=== PATIENT | male | born 1935 | race African-American/Black ===

== ENCOUNTER 2017-10-24 00:42 | Inpatient (IN) | payer MEDICARE, BC ==
[2017-10-24 02:35] LABS: ADD MAN DIFF? NO
[2017-10-24 02:37] LABS: BASOPHILS % 0.1 % (0.0-2.0); EOSINOPHILS % 0.5 % (0.0-7.0); HEMATOCRIT 34.3 % (42.0-52.0); HEMOGLOBIN 11.5 g/dl (14.0-18.0); LYMPHOCYTES # 1.7 10^3/ul (0.8-2.9); LYMPHOCYTES % 18.8 % (15.0-51.0); MEAN CORPUSCULAR HEMOGLOBIN 24.1 pg (29.0-33.0); MEAN CORPUSCULAR HGB CONC 33.5 g/dl (32.0-37.0); MEAN CORPUSCULAR VOLUME 71.8 fl (82.0-101.0); MEAN PLATELET VOLUME 10.3 fl (7.4-10.4); MONOCYTE # 0.8 10^3/ul (0.3-0.9); NEUTROPHIL # 6.3 10^3/ul (1.6-7.5); NEUTROPHILS % 71.3 % (39.0-77.0); PLATELET COUNT 239 10^3/UL (140-415); RED BLOOD COUNT 4.78 10^6/ul (4.70-6.10); RED CELL DISTRIBUTION WIDTH 15.7 % (11.5-14.5)
[2017-10-24 02:37] LABS: WHITE BLOOD COUNT 8.8 10^3/ul (4.8-10.8)
[2017-10-24 02:39] LABS: ADD UMIC YES; UR ASCORBIC ACID NEGATIVE (NEGATIVE); UR BILIRUBIN (Dip) NEGATIVE (NEGATIVE); UR BLOOD (Dip) 2+ mg/dL (NEGATIVE); UR CLARITY CLEAR (CLEAR); UR COLOR STRAW (YELLOW); UR GLUCOSE (Dip) NEGATIVE (NEGATIVE); UR KETONES (Dip) 1+ mg/dL (NEGATIVE); UR LEUKOCYTE ESTERASE (Dip) NEGATIVE Leu/ul (NEGATIVE); UR NITRITE (Dip) NEGATIVE (NEGATIVE); UR RBC 9 /HPF (0-5); UR SPECIFIC GRAVITY (Dip) 1.008 (1.003-1.030); UR TOTAL PROTEIN (Dip) NEGATIVE (NEGATIVE); UR UROBILINOGEN (Dip) NEGATIVE (NEGATIVE); UR WBC 0 /HPF (0-5)
[2017-10-24 02:52] LABS: LACTIC ACID 1.2 mmol/L (0.5-2.0)
[2017-10-24 03:01] LABS: ALANINE AMINOTRANSFERASE 33 IU/L (13-69); ALBUMIN 4.6 g/dl (3.3-4.9); ALBUMIN/GLOBULIN RATIO 1.35; ALKALINE PHOSPHATASE 53 IU/L (42-121); ANION GAP 17 (8-16); ASPARTATE AMINO TRANSFERASE 61 IU/L (15-46); BILIRUBIN,INDIRECT 0.6 mg/dl (0-1.1); BILIRUBIN,TOTAL 0.6 mg/dl (0.2-1.3); BLOOD UREA NITROGEN 24 mg/dl (7-20); CALCIUM 9.4 mg/dl (8.4-10.2); CARBON DIOXIDE 26 mmol/L (21-31); CHLORIDE 89 mmol/L (97-110); CREATININE 1.47 mg/dl (0.61-1.24); GLUCOSE 67 mg/dl (70-220); POTASSIUM 5.2 mmol/L (3.5-5.1); SODIUM 127 mmol/L (135-144)
[2017-10-24 03:04] LABS: PARTIAL THROMBOPLASTIN TIME 33.9 Sec (25.0-35.0)
[2017-10-24 03:08] LABS: INR 0.97
[2017-10-24 03:12] LABS: TROPONIN-I 0.034 ng/ml (0.00-0.12)
[2017-10-24] MEDS ORDERED: ACETAMINOPHEN 650 MG SUPP PR (06:30)
[2017-10-24] MEDS ORDERED: NACL 0.9% 3 ML SYG IV (06:30)
[2017-10-24] MEDS ORDERED: ONDANSETRON 4 MG INJ IV (06:30)
[2017-10-24 06:42] LABS: LACTIC ACID 1.2 mmol/L (0.5-2.0)
[2017-10-24] MEDS: SOD CHLORIDE 0.9% 1,000 ML IV (08:48)
[2017-10-24] MEDS: DEXTROSE 5%-0.9% NACL 1,000 ML IV (13:22)
[2017-10-24] MEDS: CEFTRIAXONE 1 GM/50 ML (PMX) 50 ML IVPB (13:22)
[2017-10-25] MEDS: DEXTROSE 5%-0.9% NACL 1,000 ML IV ×2 (01:30→11:54)
[2017-10-25] MEDS ORDERED: VANCOMYCIN IV PER PHARMACY XX (02:00)
[2017-10-25] MEDS: VANCOMYCIN 1.25 GM in SOD CHLORIDE 0.9% 250 ML IVPB (02:21)
[2017-10-25] MEDS: hydrALAzine 20 MG INJ IV (02:31)
[2017-10-25 07:58] LABS: ADD MAN DIFF? NO
[2017-10-25 08:09] LABS: BASOPHILS % 0.2 % (0.0-2.0); EOSINOPHILS # 0.1 10^3/ul (0.0-0.5); EOSINOPHILS % 0.8 % (0.0-7.0); HEMATOCRIT 34.3 % (42.0-52.0); HEMOGLOBIN 11.6 g/dl (14.0-18.0); LYMPHOCYTES # 1.6 10^3/ul (0.8-2.9); LYMPHOCYTES % 25.4 % (15.0-51.0); MEAN CORPUSCULAR HEMOGLOBIN 23.8 pg (29.0-33.0); MEAN CORPUSCULAR HGB CONC 33.8 g/dl (32.0-37.0); MEAN CORPUSCULAR VOLUME 70.4 fl (82.0-101.0); MEAN PLATELET VOLUME 9.3 fl (7.4-10.4); MONOCYTE # 0.7 10^3/ul (0.3-0.9); MONOCYTES % 11.1 % (0.0-11.0); NEUTROPHIL # 3.9 10^3/ul (1.6-7.5); NEUTROPHILS % 62.3 % (39.0-77.0); PLATELET COUNT 262 10^3/UL (140-415); RED BLOOD COUNT 4.87 10^6/ul (4.70-6.10); RED CELL DISTRIBUTION WIDTH 15.1 % (11.5-14.5)
[2017-10-25 08:09] LABS: WHITE BLOOD COUNT 6.3 10^3/ul (4.8-10.8)
[2017-10-25 08:31] LABS: ALANINE AMINOTRANSFERASE 46 IU/L (13-69); ALBUMIN/GLOBULIN RATIO 1.11; ALKALINE PHOSPHATASE 64 IU/L (42-121); ANION GAP 18 (8-16); ASPARTATE AMINO TRANSFERASE 65 IU/L (15-46); BILIRUBIN,INDIRECT 0.7 mg/dl (0-1.1); BILIRUBIN,TOTAL 0.7 mg/dl (0.2-1.3); BLOOD UREA NITROGEN 21 mg/dl (7-20); CALCIUM 9.2 mg/dl (8.4-10.2); CARBON DIOXIDE 19 mmol/L (21-31); CHLORIDE 96 mmol/L (97-110); CHOL/HDL RATIO 2.8 RATIO; CHOLESTEROL 192 mg/dl (100-200); CREATININE 1.59 mg/dl (0.61-1.24); GLUCOSE 77 mg/dl (70-220); HDL CHOLESTEROL 68 mg/dl (31-75); LDL CHOLESTEROL,CALCULATED 114 mg/dl; POTASSIUM 4.1 mmol/L (3.5-5.1); SODIUM 129 mmol/L (135-144); TOTAL PROTEIN 7.6 g/dl (6.1-8.1); TRIGLYCERIDES 49 mg/dl (0-149)
[2017-10-25 08:50] LABS: HEMOGLOBIN A1C 5.2 % (0-5.9)
[2017-10-26] MEDS: DEXTROSE 5%-0.9% NACL 1,000 ML IV ×3 (01:23→15:40)
[2017-10-26] MEDS ORDERED: VANCOMYCIN 750 MG in DEXTROSE 5% 150 ML IVPB (02:00)
[2017-10-26] MEDS: hydrALAzine 20 MG INJ IV (06:13)
[2017-10-26 08:48] LABS: ADD MAN DIFF? NO
[2017-10-26 08:59] LABS: BASOPHILS % 0.2 % (0.0-2.0); EOSINOPHILS # 0.1 10^3/ul (0.0-0.5); EOSINOPHILS % 1.2 % (0.0-7.0); HEMATOCRIT 33.4 % (42.0-52.0); HEMOGLOBIN 11.3 g/dl (14.0-18.0); MEAN CORPUSCULAR HEMOGLOBIN 23.8 pg (29.0-33.0); MEAN CORPUSCULAR HGB CONC 33.8 g/dl (32.0-37.0); MEAN CORPUSCULAR VOLUME 70.3 fl (82.0-101.0); MEAN PLATELET VOLUME 9.2 fl (7.4-10.4); MONOCYTE # 0.5 10^3/ul (0.3-0.9); MONOCYTES % 10.8 % (0.0-11.0); NEUTROPHIL # 2.3 10^3/ul (1.6-7.5); NEUTROPHILS % 47.6 % (39.0-77.0); PLATELET COUNT 268 10^3/UL (140-415); RED BLOOD COUNT 4.75 10^6/ul (4.70-6.10); RED CELL DISTRIBUTION WIDTH 15.4 % (11.5-14.5)
[2017-10-26 08:59] LABS: WHITE BLOOD COUNT 4.9 10^3/ul (4.8-10.8)
[2017-10-26 09:15] LABS: ANION GAP 18 (8-16); BLOOD UREA NITROGEN 16 mg/dl (7-20); CARBON DIOXIDE 19 mmol/L (21-31); CHLORIDE 101 mmol/L (97-110); CREATININE 1.12 mg/dl (0.61-1.24); GLUCOSE 114 mg/dl (70-220); POTASSIUM 3.9 mmol/L (3.5-5.1); SODIUM 134 mmol/L (135-144)
[2017-10-26] MEDS: VANCOMYCIN 500MG/NS (PMX) 100 ML IVPB ×2 (11:37→15:40)
[2017-10-26 20:13] LABS: TROPONIN-I 0.023 ng/ml (0.00-0.12)
[2017-10-27 01:42] LABS: TROPONIN-I 0.036 ng/ml (0.00-0.12)
[2017-10-27] MEDS: DEXTROSE 5%-0.9% NACL 1,000 ML IV ×2 (05:38→07:37)
[2017-10-27 08:11] LABS: CHOL/HDL RATIO 2.4 RATIO; HDL CHOLESTEROL 60 mg/dl (31-75); LDL CHOLESTEROL,CALCULATED 78 mg/dl; TRIGLYCERIDES 45 mg/dl (0-149)
[2017-10-27 08:11] LABS: CHOLESTEROL 147 mg/dl (100-200)
[2017-10-27 08:34] LABS: ANION GAP 12 (8-16); BLOOD UREA NITROGEN 16 mg/dl (7-20); CALCIUM 9.2 mg/dl (8.4-10.2); CARBON DIOXIDE 24 mmol/L (21-31); CHLORIDE 102 mmol/L (97-110); CREATININE 1.07 mg/dl (0.61-1.24); GLUCOSE 100 mg/dl (70-220); SODIUM 134 mmol/L (135-144)
[2017-10-27] MEDS: ASPIRIN 81 MG TAB PO (08:52)
[2017-10-27] MEDS: VANCOMYCIN 1 GM 250 ML IVPB (12:52)
[2017-10-28] MEDS: DEXTROSE 5%-0.9% NACL 1,000 ML IV (03:37)
[2017-10-28 08:31] LABS: ANION GAP 12 (8-16); BLOOD UREA NITROGEN 17 mg/dl (7-20); CALCIUM 8.9 mg/dl (8.4-10.2); CARBON DIOXIDE 27 mmol/L (21-31); CHLORIDE 102 mmol/L (97-110); CREATININE 1.02 mg/dl (0.61-1.24); GLUCOSE 81 mg/dl (70-220); POTASSIUM 4.1 mmol/L (3.5-5.1); SODIUM 137 mmol/L (135-144)
[2017-10-28] MEDS: ASPIRIN 81 MG TAB PO (08:59)
[2017-10-28] MEDS: FINASTERIDE 5 MG TAB PO (17:15)
[2017-10-28] MEDS: TAMSULOSIN (SR) 0.4 MG CAP PO (20:57)
[2017-10-29] MEDS: HALOPERIDOL 5 MG INJ IM (00:44)
[2017-10-29] MEDS: ASPIRIN 81 MG TAB PO (09:21)
[2017-10-29] MEDS: FINASTERIDE 5 MG TAB PO (09:21)
[2017-10-29 09:33] LABS: ANION GAP 16 (8-16); BLOOD UREA NITROGEN 19 mg/dl (7-20); CALCIUM 9.2 mg/dl (8.4-10.2); CARBON DIOXIDE 28 mmol/L (21-31); CHLORIDE 97 mmol/L (97-110); CREATININE 1.01 mg/dl (0.61-1.24); GLUCOSE 74 mg/dl (70-220); POTASSIUM 4.1 mmol/L (3.5-5.1); SODIUM 137 mmol/L (135-144)
[2017-10-29] MEDS: CLOPIDOGREL 75 MG TAB PO (17:23)
[2017-10-29] MEDS: TAMSULOSIN (SR) 0.4 MG CAP PO (20:13)
[2017-10-29] MEDS: METOPROLOL 25 MG TAB NGT (20:14)
[2017-10-30 09:11] LABS: ADD MAN DIFF? NO
[2017-10-30 09:14] LABS: ABNORMAL IP MESSAGE 1; BASOPHILS % 0.3 % (0.0-2.0); EOSINOPHILS # 0.2 10^3/ul (0.0-0.5); EOSINOPHILS % 6.8 % (0.0-7.0); HEMATOCRIT 32.2 % (42.0-52.0); HEMOGLOBIN 10.5 g/dl (14.0-18.0); LYMPHOCYTES # 1.5 10^3/ul (0.8-2.9); LYMPHOCYTES % 50.2 % (15.0-51.0); MEAN CORPUSCULAR HEMOGLOBIN 23.6 pg (29.0-33.0); MEAN CORPUSCULAR HGB CONC 32.6 g/dl (32.0-37.0); MEAN CORPUSCULAR VOLUME 72.5 fl (82.0-101.0); MONOCYTE # 0.3 10^3/ul (0.3-0.9); MONOCYTES % 9.5 % (0.0-11.0); NEUTROPHILS % 33.2 % (39.0-77.0); PLATELET COUNT 257 10^3/UL (140-415); POSITIVE DIFF @See below; RED BLOOD COUNT 4.44 10^6/ul (4.70-6.10); RED CELL DISTRIBUTION WIDTH 15.4 % (11.5-14.5)
[2017-10-30 09:40] LABS: ANION GAP 13 (8-16); BLOOD UREA NITROGEN 25 mg/dl (7-20); CALCIUM 9.4 mg/dl (8.4-10.2); CARBON DIOXIDE 28 mmol/L (21-31); CHLORIDE 100 mmol/L (97-110); CREATININE 1.03 mg/dl (0.61-1.24); GLUCOSE 77 mg/dl (70-220); POTASSIUM 4.1 mmol/L (3.5-5.1); SODIUM 137 mmol/L (135-144)
[2017-10-30] MEDS: FINASTERIDE 5 MG TAB PO (09:40)
[2017-10-30] MEDS: ASPIRIN 81 MG TAB PO (09:40)
[2017-10-30] MEDS: CLOPIDOGREL 75 MG TAB PO (09:40)
[2017-10-30] MEDS: METOPROLOL 25 MG TAB NGT (09:40)
== END 2017-10-30 15:02 | DRG 64 ==
LOC: MS4 10-28 21:27 → E/R 00:42 → MS4 03:49
DX: I63.9 Cerebral infarction, unspecified (principal); G92 Toxic encephalopathy; J18.9 Pneumonia, unspecified organism; I50.43 Acute on chronic combined systolic (congestive) and diastolic (congestive) heart failure; N39.0 Urinary tract infection, site not specified; N17.9 Acute kidney failure, unspecified; E87.1 Hypo-osmolality and hyponatremia; N13.30 Unspecified hydronephrosis; R78.81 Bacteremia; Z85.72 Personal history of non-Hodgkin lymphomas; K21.9 Gastro-esophageal reflux disease without esophagitis; E87.5 Hyperkalemia; N40.0 Benign prostatic hyperplasia without lower urinary tract symptoms; E78.5 Hyperlipidemia, unspecified; I11.0 Hypertensive heart disease with heart failure; K59.00 Constipation, unspecified; B95.7 Other staphylococcus as the cause of diseases classified elsewhere; R00.1 Bradycardia, unspecified
CPT/HCPCS: 36415; 70450; 70551; 71045; 74176; 76775; 80048; 80053; 80061; 81001; 83036; 83605; 83735; 84443; 84484; 85025; 85610; 85730; 87040; 87086; 92526; 92610; 93005; 93306; 93880; 95819; 97110; 97116; 97162; 97530; 99285-25

== ENCOUNTER 2017-10-30 15:05 | Inpatient (IN) | payer MEDICARE, BC ==
[2017-10-30] MEDS ORDERED: BISACODYL 10 MG SUPP PR (16:00)
[2017-10-30] MEDS ORDERED: hydrALAzine 20 MG INJ IV (17:30)
[2017-10-30] MEDS ORDERED: ACETAMINOPHEN 650 MG SUPP PR (17:30)
[2017-10-30] MEDS ORDERED: NACL 0.9% 3 ML SYG IV (17:30)
[2017-10-30] MEDS: TAMSULOSIN (SR) 0.4 MG CAP PO (21:54)
[2017-10-30] MEDS: SENNA TAB PO (21:54)
[2017-10-30] MEDS: METOPROLOL 25 MG TAB PO (21:54)
[2017-10-30] MEDS ORDERED: ACETAMINOPHEN 325 MG TAB PO (22:30)
[2017-10-31] MEDS: LORAZEPAM 0.5 MG TAB PO (02:48)
[2017-10-31 04:22] LABS: ADD UMIC NO; UR ASCORBIC ACID NEGATIVE (NEGATIVE); UR BILIRUBIN (Dip) NEGATIVE (NEGATIVE); UR BLOOD (Dip) NEGATIVE (NEGATIVE); UR CLARITY CLEAR (CLEAR); UR COLOR YELLOW (YELLOW); UR GLUCOSE (Dip) NEGATIVE (NEGATIVE); UR KETONES (Dip) NEGATIVE (NEGATIVE); UR LEUKOCYTE ESTERASE (Dip) NEGATIVE Leu/ul (NEGATIVE); UR NITRITE (Dip) NEGATIVE (NEGATIVE); UR SPECIFIC GRAVITY (Dip) 1.013 (1.003-1.030); UR TOTAL PROTEIN (Dip) NEGATIVE (NEGATIVE); UR UROBILINOGEN (Dip) NEGATIVE (NEGATIVE)
[2017-10-31 07:38] LABS: ADD MAN DIFF? NO
[2017-10-31 07:52] LABS: WHITE BLOOD COUNT 3.4 10^3/ul (4.8-10.8)
[2017-10-31 07:52] LABS: ABNORMAL IP MESSAGE 1; BASOPHILS % 0.6 % (0.0-2.0); EOSINOPHILS # 0.2 10^3/ul (0.0-0.5); EOSINOPHILS % 6.2 % (0.0-7.0); HEMATOCRIT 33.3 % (42.0-52.0); HEMOGLOBIN 10.9 g/dl (14.0-18.0); LYMPHOCYTES # 1.9 10^3/ul (0.8-2.9); LYMPHOCYTES % 57.1 % (15.0-51.0); MEAN CORPUSCULAR HEMOGLOBIN 23.6 pg (29.0-33.0); MEAN CORPUSCULAR HGB CONC 32.7 g/dl (32.0-37.0); MEAN CORPUSCULAR VOLUME 72.1 fl (82.0-101.0); MONOCYTE # 0.3 10^3/ul (0.3-0.9); MONOCYTES % 10.1 % (0.0-11.0); NEUTROPHIL # 0.9 10^3/ul (1.6-7.5); PLATELET COUNT 265 10^3/UL (140-415); POSITIVE DIFF @See below; RED BLOOD COUNT 4.62 10^6/ul (4.70-6.10); RED CELL DISTRIBUTION WIDTH 15.3 % (11.5-14.5)
[2017-10-31 08:15] LABS: ALANINE AMINOTRANSFERASE 39 IU/L (13-69); ALBUMIN 3.6 g/dl (3.3-4.9); ALKALINE PHOSPHATASE 47 IU/L (42-121); ANION GAP 13 (8-16); ASPARTATE AMINO TRANSFERASE 41 IU/L (15-46); BILIRUBIN,INDIRECT 0.4 mg/dl (0-1.1); BILIRUBIN,TOTAL 0.4 mg/dl (0.2-1.3); BLOOD UREA NITROGEN 27 mg/dl (7-20); CALCIUM 9.3 mg/dl (8.4-10.2); CARBON DIOXIDE 29 mmol/L (21-31); CHLORIDE 99 mmol/L (97-110); CREATININE 0.97 mg/dl (0.61-1.24); GLUCOSE 74 mg/dl (70-220); POTASSIUM 4.1 mmol/L (3.5-5.1); SODIUM 137 mmol/L (135-144); TOTAL PROTEIN 7.2 g/dl (6.1-8.1)
[2017-10-31] MEDS: FINASTERIDE 5 MG TAB PO (08:33)
[2017-10-31] MEDS: ASPIRIN 81 MG TAB PO (08:33)
[2017-10-31] MEDS: METOPROLOL 25 MG TAB PO ×2 (08:34→20:37)
[2017-10-31] MEDS: CLOPIDOGREL 75 MG TAB PO (08:34)
[2017-10-31] MEDS: TAMSULOSIN (SR) 0.4 MG CAP PO (20:36)
[2017-10-31] MEDS: SENNA TAB PO (20:37)
[2017-11-01] MEDS: CLOPIDOGREL 75 MG TAB PO (08:37)
[2017-11-01] MEDS: METOPROLOL 25 MG TAB PO ×2 (08:37→20:52)
[2017-11-01] MEDS: ASPIRIN 81 MG TAB PO (08:37)
[2017-11-01] MEDS: FINASTERIDE 5 MG TAB PO (08:37)
[2017-11-01] MEDS: TAMSULOSIN (SR) 0.4 MG CAP PO (20:49)
[2017-11-01] MEDS: SENNA TAB PO (20:49)
[2017-11-02] MEDS: CLOPIDOGREL 75 MG TAB PO (08:00)
[2017-11-02] MEDS: ASPIRIN 81 MG TAB PO (08:00)
[2017-11-02] MEDS: FINASTERIDE 5 MG TAB PO (08:00)
[2017-11-02] MEDS: METOPROLOL 25 MG TAB PO ×2 (09:00→21:20)
[2017-11-02] MEDS: TAMSULOSIN (SR) 0.4 MG CAP PO (21:19)
[2017-11-02] MEDS: SENNA TAB PO (21:19)
[2017-11-03] MEDS: CLOPIDOGREL 75 MG TAB PO (09:05)
[2017-11-03] MEDS: ASPIRIN 81 MG TAB PO (09:05)
[2017-11-03] MEDS: METOPROLOL 25 MG TAB PO ×2 (09:05→20:08)
[2017-11-03] MEDS: FINASTERIDE 5 MG TAB PO (09:05)
[2017-11-03] MEDS: TAMSULOSIN (SR) 0.4 MG CAP PO (20:07)
[2017-11-03] MEDS: SENNA TAB PO (20:07)
[2017-11-03] MEDS: ATORVASTATIN 20 MG TAB PO (20:07)
[2017-11-04 06:38] LABS: ADD MAN DIFF? NO
[2017-11-04 06:48] LABS: WHITE BLOOD COUNT 3.2 10^3/ul (4.8-10.8)
[2017-11-04 06:48] LABS: ABNORMAL IP MESSAGE 1; BASOPHILS % 0.3 % (0.0-2.0); EOSINOPHILS # 0.2 10^3/ul (0.0-0.5); EOSINOPHILS % 6.3 % (0.0-7.0); HEMATOCRIT 29.8 % (42.0-52.0); LYMPHOCYTES # 1.8 10^3/ul (0.8-2.9); LYMPHOCYTES % 57.1 % (15.0-51.0); MEAN CORPUSCULAR HEMOGLOBIN 24.1 pg (29.0-33.0); MEAN CORPUSCULAR HGB CONC 33.6 g/dl (32.0-37.0); MEAN CORPUSCULAR VOLUME 71.8 fl (82.0-101.0); MONOCYTE # 0.3 10^3/ul (0.3-0.9); MONOCYTES % 8.8 % (0.0-11.0); NEUTROPHIL # 0.9 10^3/ul (1.6-7.5); NEUTROPHILS % 27.5 % (39.0-77.0); PLATELET COUNT 299 10^3/UL (140-415); POSITIVE DIFF @See below; RED BLOOD COUNT 4.15 10^6/ul (4.70-6.10); RED CELL DISTRIBUTION WIDTH 15.6 % (11.5-14.5)
[2017-11-04 07:36] LABS: ANION GAP 13 (8-16); BLOOD UREA NITROGEN 27 mg/dl (7-20); CALCIUM 9.2 mg/dl (8.4-10.2); CARBON DIOXIDE 27 mmol/L (21-31); CHLORIDE 100 mmol/L (97-110); CREATININE 1.12 mg/dl (0.61-1.24); GLUCOSE 81 mg/dl (70-220); POTASSIUM 4.3 mmol/L (3.5-5.1); SODIUM 136 mmol/L (135-144)
[2017-11-04] MEDS: METOPROLOL 25 MG TAB PO ×2 (08:36→20:41)
[2017-11-04] MEDS: CLOPIDOGREL 75 MG TAB PO (08:36)
[2017-11-04] MEDS: FINASTERIDE 5 MG TAB PO (08:36)
[2017-11-04] MEDS: ASPIRIN 81 MG TAB PO (08:37)
[2017-11-04] MEDS: SENNA TAB PO (20:39)
[2017-11-04] MEDS: ATORVASTATIN 20 MG TAB PO (20:39)
[2017-11-04] MEDS: TAMSULOSIN (SR) 0.4 MG CAP PO (20:39)
[2017-11-05] MEDS: ASPIRIN 81 MG TAB PO (08:45)
[2017-11-05] MEDS: METOPROLOL 25 MG TAB PO ×2 (08:45→20:17)
[2017-11-05] MEDS: CLOPIDOGREL 75 MG TAB PO (08:45)
[2017-11-05] MEDS: FINASTERIDE 5 MG TAB PO (08:45)
[2017-11-05] MEDS: TAMSULOSIN (SR) 0.4 MG CAP PO (20:17)
[2017-11-05] MEDS: ATORVASTATIN 20 MG TAB PO (20:17)
[2017-11-05] MEDS: SENNA TAB PO (20:17)
[2017-11-06] MEDS: CLOPIDOGREL 75 MG TAB PO (08:25)
[2017-11-06] MEDS: ASPIRIN 81 MG TAB PO (08:25)
[2017-11-06] MEDS: FINASTERIDE 5 MG TAB PO (08:25)
[2017-11-06] MEDS: METOPROLOL 25 MG TAB PO ×2 (08:26→20:18)
[2017-11-06] MEDS: ATORVASTATIN 20 MG TAB PO (20:17)
[2017-11-06] MEDS: SENNA TAB PO (20:18)
[2017-11-06] MEDS: TAMSULOSIN (SR) 0.4 MG CAP PO (20:18)
[2017-11-07] MEDS: MAGNESIUM HYDROXIDE 30ML CUP PO (06:31)
[2017-11-07] MEDS: ASPIRIN 81 MG TAB PO (08:38)
[2017-11-07] MEDS: CLOPIDOGREL 75 MG TAB PO (08:38)
[2017-11-07] MEDS: METOPROLOL 25 MG TAB PO ×2 (08:39→20:19)
[2017-11-07] MEDS: FINASTERIDE 5 MG TAB PO (08:39)
[2017-11-07] MEDS: SENNA TAB PO (20:17)
[2017-11-07] MEDS: ATORVASTATIN 20 MG TAB PO (20:17)
[2017-11-07] MEDS: TAMSULOSIN (SR) 0.4 MG CAP PO (20:17)
[2017-11-08] MEDS: ASPIRIN 81 MG TAB PO (08:34)
[2017-11-08] MEDS: METOPROLOL 25 MG TAB PO ×2 (08:35→21:21)
[2017-11-08] MEDS: CLOPIDOGREL 75 MG TAB PO (08:35)
[2017-11-08] MEDS: FINASTERIDE 5 MG TAB PO (08:35)
[2017-11-08] MEDS: TAMSULOSIN (SR) 0.4 MG CAP PO (21:21)
[2017-11-08] MEDS: ATORVASTATIN 20 MG TAB PO (21:21)
[2017-11-08] MEDS: SENNA TAB PO (21:22)
[2017-11-09] MEDS: ASPIRIN 81 MG TAB PO (08:27)
[2017-11-09] MEDS: CLOPIDOGREL 75 MG TAB PO (08:28)
[2017-11-09] MEDS: FINASTERIDE 5 MG TAB PO (08:28)
[2017-11-09] MEDS: METOPROLOL 25 MG TAB PO ×2 (08:28→20:51)
[2017-11-09] MEDS: SENNA TAB PO (20:51)
[2017-11-09] MEDS: TAMSULOSIN (SR) 0.4 MG CAP PO (20:51)
[2017-11-09] MEDS: ATORVASTATIN 20 MG TAB PO (20:51)
[2017-11-10] MEDS: CLOPIDOGREL 75 MG TAB PO (10:43)
[2017-11-10] MEDS: ASPIRIN 81 MG TAB PO (10:43)
[2017-11-10] MEDS: FINASTERIDE 5 MG TAB PO (10:43)
[2017-11-10] MEDS: METOPROLOL 25 MG TAB PO ×2 (10:46→21:57)
[2017-11-10] MEDS: SENNA TAB PO (21:57)
[2017-11-10] MEDS: ATORVASTATIN 20 MG TAB PO (21:57)
[2017-11-10] MEDS: TAMSULOSIN (SR) 0.4 MG CAP PO (21:57)
[2017-11-11] MEDS: ASPIRIN 81 MG TAB PO (08:58)
[2017-11-11] MEDS: CLOPIDOGREL 75 MG TAB PO (08:59)
[2017-11-11] MEDS: FINASTERIDE 5 MG TAB PO (08:59)
[2017-11-11] MEDS: METOPROLOL 25 MG TAB PO ×2 (08:59→22:08)
[2017-11-11] MEDS: ATORVASTATIN 20 MG TAB PO (22:01)
[2017-11-11] MEDS: TAMSULOSIN (SR) 0.4 MG CAP PO (22:01)
[2017-11-11] MEDS: SENNA TAB PO (22:09)
[2017-11-12] MEDS: ASPIRIN 81 MG TAB PO (08:59)
[2017-11-12] MEDS: CLOPIDOGREL 75 MG TAB PO (09:00)
[2017-11-12] MEDS: METOPROLOL 25 MG TAB PO ×2 (09:00→20:36)
[2017-11-12] MEDS: FINASTERIDE 5 MG TAB PO (09:00)
[2017-11-12] MEDS: SENNA TAB PO (20:36)
[2017-11-12] MEDS: TAMSULOSIN (SR) 0.4 MG CAP PO (20:36)
[2017-11-12] MEDS: ATORVASTATIN 20 MG TAB PO (20:37)
[2017-11-13] MEDS: ASPIRIN 81 MG TAB PO (08:56)
[2017-11-13] MEDS: METOPROLOL 25 MG TAB PO ×2 (08:57→20:26)
[2017-11-13] MEDS: FINASTERIDE 5 MG TAB PO (08:57)
[2017-11-13] MEDS: CLOPIDOGREL 75 MG TAB PO (08:57)
[2017-11-13] MEDS: MAGNESIUM HYDROXIDE 30ML CUP PO (08:59)
[2017-11-13] MEDS: ATORVASTATIN 20 MG TAB PO (20:08)
[2017-11-13] MEDS: SENNA TAB PO (20:08)
[2017-11-13] MEDS: TAMSULOSIN (SR) 0.4 MG CAP PO (20:08)
[2017-11-14] MEDS: FINASTERIDE 5 MG TAB PO (09:07)
[2017-11-14] MEDS: METOPROLOL 25 MG TAB PO ×2 (09:07→20:42)
[2017-11-14] MEDS: ASPIRIN 81 MG TAB PO (09:07)
[2017-11-14] MEDS: CLOPIDOGREL 75 MG TAB PO (09:07)
[2017-11-14] MEDS: ATORVASTATIN 20 MG TAB PO (20:41)
[2017-11-14] MEDS: TAMSULOSIN (SR) 0.4 MG CAP PO (20:42)
[2017-11-14] MEDS: SENNA TAB PO (20:42)
[2017-11-15] MEDS: FINASTERIDE 5 MG TAB PO (09:10)
[2017-11-15] MEDS: METOPROLOL 25 MG TAB PO ×2 (09:10→20:12)
[2017-11-15] MEDS: ASPIRIN 81 MG TAB PO (09:10)
[2017-11-15] MEDS: CLOPIDOGREL 75 MG TAB PO (09:10)
[2017-11-15] MEDS: ATORVASTATIN 20 MG TAB PO (20:12)
[2017-11-15] MEDS: TAMSULOSIN (SR) 0.4 MG CAP PO (20:12)
[2017-11-15] MEDS: SENNA TAB PO (20:13)
[2017-11-16] MEDS: METOPROLOL 25 MG TAB PO ×2 (08:52→20:57)
[2017-11-16] MEDS: ASPIRIN 81 MG TAB PO (08:52)
[2017-11-16] MEDS: CLOPIDOGREL 75 MG TAB PO (08:52)
[2017-11-16] MEDS: FINASTERIDE 5 MG TAB PO (08:52)
[2017-11-16] MEDS: TAMSULOSIN (SR) 0.4 MG CAP PO (20:55)
[2017-11-16] MEDS: ATORVASTATIN 20 MG TAB PO (20:55)
[2017-11-16] MEDS: SENNA TAB PO (20:59)
[2017-11-17] MEDS: ASPIRIN 81 MG TAB PO (08:23)
[2017-11-17] MEDS: METOPROLOL 25 MG TAB PO ×2 (08:24→21:33)
[2017-11-17] MEDS: FINASTERIDE 5 MG TAB PO (08:24)
[2017-11-17] MEDS: CLOPIDOGREL 75 MG TAB PO (08:24)
[2017-11-17] MEDS: AMLODIPINE 2.5 MG TAB PO (08:25)
[2017-11-17] MEDS: ATORVASTATIN 20 MG TAB PO (21:31)
[2017-11-17] MEDS: SENNA TAB PO (21:33)
[2017-11-17] MEDS: TAMSULOSIN (SR) 0.4 MG CAP PO (21:33)
[2017-11-18] MEDS: METOPROLOL 25 MG TAB PO ×2 (09:17→20:45)
[2017-11-18] MEDS: AMLODIPINE 2.5 MG TAB PO (09:17)
[2017-11-18] MEDS: ASPIRIN 81 MG TAB PO (09:17)
[2017-11-18] MEDS: CLOPIDOGREL 75 MG TAB PO (09:17)
[2017-11-18] MEDS: FINASTERIDE 5 MG TAB PO (09:17)
[2017-11-18] MEDS: SENNA TAB PO (20:44)
[2017-11-18] MEDS: TAMSULOSIN (SR) 0.4 MG CAP PO (20:44)
[2017-11-18] MEDS: ATORVASTATIN 20 MG TAB PO (20:45)
[2017-11-19] MEDS: ASPIRIN 81 MG TAB PO (08:29)
[2017-11-19] MEDS: METOPROLOL 25 MG TAB PO ×2 (08:30→20:12)
[2017-11-19] MEDS: FINASTERIDE 5 MG TAB PO (08:30)
[2017-11-19] MEDS: AMLODIPINE 2.5 MG TAB PO (08:30)
[2017-11-19] MEDS: CLOPIDOGREL 75 MG TAB PO (08:30)
[2017-11-19] MEDS: ATORVASTATIN 20 MG TAB PO (20:11)
[2017-11-19] MEDS: TAMSULOSIN (SR) 0.4 MG CAP PO (20:11)
[2017-11-19] MEDS: SENNA TAB PO (20:12)
[2017-11-20] MEDS: ASPIRIN 81 MG TAB PO (09:02)
[2017-11-20] MEDS: CLOPIDOGREL 75 MG TAB PO (09:03)
[2017-11-20] MEDS: METOPROLOL 25 MG TAB PO ×2 (09:03→20:27)
[2017-11-20] MEDS: AMLODIPINE 2.5 MG TAB PO (09:03)
[2017-11-20] MEDS: FINASTERIDE 5 MG TAB PO (09:03)
[2017-11-20] MEDS: LACTULOSE 30ML CUP PO (14:29)
[2017-11-20] MEDS: TAMSULOSIN (SR) 0.4 MG CAP PO (20:27)
[2017-11-20] MEDS: SENNA TAB PO (20:27)
[2017-11-20] MEDS: ATORVASTATIN 20 MG TAB PO (20:27)
[2017-11-21] MEDS: METOPROLOL 25 MG TAB PO ×2 (08:18→21:40)
[2017-11-21] MEDS: ASPIRIN 81 MG TAB PO (08:18)
[2017-11-21] MEDS: AMLODIPINE 2.5 MG TAB PO (08:18)
[2017-11-21] MEDS: CLOPIDOGREL 75 MG TAB PO (08:18)
[2017-11-21] MEDS: FINASTERIDE 5 MG TAB PO (08:19)
[2017-11-21] MEDS: ONDANSETRON (ODT) 4 MG TAB ODT (14:48)
[2017-11-21] MEDS: TAMSULOSIN (SR) 0.4 MG CAP PO (21:39)
[2017-11-21] MEDS: SENNA TAB PO (21:39)
[2017-11-21] MEDS: ATORVASTATIN 20 MG TAB PO (21:39)
[2017-11-22 07:03] LABS: ADD MAN DIFF? NO
[2017-11-22 07:18] LABS: WHITE BLOOD COUNT 4.9 10^3/ul (4.8-10.8)
[2017-11-22 07:18] LABS: BASOPHILS % 0.2 % (0.0-2.0); EOSINOPHILS # 0.2 10^3/ul (0.0-0.5); EOSINOPHILS % 3.5 % (0.0-7.0); HEMATOCRIT 34.4 % (42.0-52.0); HEMOGLOBIN 11.4 g/dl (14.0-18.0); LYMPHOCYTES % 40.8 % (15.0-51.0); MEAN CORPUSCULAR HEMOGLOBIN 23.6 pg (29.0-33.0); MEAN CORPUSCULAR HGB CONC 33.1 g/dl (32.0-37.0); MEAN CORPUSCULAR VOLUME 71.1 fl (82.0-101.0); MEAN PLATELET VOLUME 9.5 fl (7.4-10.4); MONOCYTE # 0.5 10^3/ul (0.3-0.9); MONOCYTES % 9.6 % (0.0-11.0); NEUTROPHIL # 2.2 10^3/ul (1.6-7.5); NEUTROPHILS % 45.7 % (39.0-77.0); PLATELET COUNT 239 10^3/UL (140-415); RED BLOOD COUNT 4.84 10^6/ul (4.70-6.10); RED CELL DISTRIBUTION WIDTH 15.9 % (11.5-14.5)
[2017-11-22 07:37] LABS: ANION GAP 11 (8-16); BLOOD UREA NITROGEN 21 mg/dl (7-20); CALCIUM 9.3 mg/dl (8.4-10.2); CARBON DIOXIDE 26 mmol/L (21-31); CHLORIDE 98 mmol/L (97-110); CREATININE 1.13 mg/dl (0.61-1.24); GLUCOSE 88 mg/dl (70-220); POTASSIUM 4.2 mmol/L (3.5-5.1); SODIUM 131 mmol/L (135-144)
[2017-11-22] MEDS: METOPROLOL 25 MG TAB PO ×2 (09:20→21:16)
[2017-11-22] MEDS: ASPIRIN 81 MG TAB PO (09:20)
[2017-11-22] MEDS: FINASTERIDE 5 MG TAB PO (09:21)
[2017-11-22] MEDS: CLOPIDOGREL 75 MG TAB PO (09:21)
[2017-11-22] MEDS: AMLODIPINE 2.5 MG TAB PO (09:21)
[2017-11-22] MEDS: ONDANSETRON (ODT) 4 MG TAB ODT (09:23)
[2017-11-22 11:42] LABS: ADD MAN DIFF? NO
[2017-11-22 11:47] LABS: BASOPHILS % 0.2 % (0.0-2.0); EOSINOPHILS # 0.2 10^3/ul (0.0-0.5); EOSINOPHILS % 3.5 % (0.0-7.0); HEMOGLOBIN 11.3 g/dl (14.0-18.0); LYMPHOCYTES % 42.3 % (15.0-51.0); MEAN CORPUSCULAR HEMOGLOBIN 23.9 pg (29.0-33.0); MEAN CORPUSCULAR HGB CONC 33.2 g/dl (32.0-37.0); MEAN CORPUSCULAR VOLUME 71.9 fl (82.0-101.0); MEAN PLATELET VOLUME 9.7 fl (7.4-10.4); MONOCYTE # 0.6 10^3/ul (0.3-0.9); MONOCYTES % 11.5 % (0.0-11.0); NEUTROPHILS % 42.3 % (39.0-77.0); PLATELET COUNT 226 10^3/UL (140-415); RED BLOOD COUNT 4.73 10^6/ul (4.70-6.10); RED CELL DISTRIBUTION WIDTH 15.9 % (11.5-14.5)
[2017-11-22 11:47] LABS: WHITE BLOOD COUNT 4.8 10^3/ul (4.8-10.8)
[2017-11-22 12:09] LABS: ANION GAP 12 (8-16); BLOOD UREA NITROGEN 25 mg/dl (7-20); CALCIUM 9.4 mg/dl (8.4-10.2); CARBON DIOXIDE 29 mmol/L (21-31); CHLORIDE 95 mmol/L (97-110); CREATININE 1.23 mg/dl (0.61-1.24); GLUCOSE 101 mg/dl (70-220); SODIUM 132 mmol/L (135-144)
[2017-11-22 12:11] LABS: ALANINE AMINOTRANSFERASE 33 IU/L (13-69); ALBUMIN 3.5 g/dl (3.3-4.9); ALKALINE PHOSPHATASE 56 IU/L (42-121); ASPARTATE AMINO TRANSFERASE 28 IU/L (15-46); BILIRUBIN,INDIRECT 0.8 mg/dl (0-1.1); BILIRUBIN,TOTAL 0.8 mg/dl (0.2-1.3); TOTAL PROTEIN 6.7 g/dl (6.1-8.1)
[2017-11-22] MEDS: SOD CHLORIDE 0.9% 1,000 ML IV (13:41)
[2017-11-22] MEDS: PANTOPRAZOLE 40 MG INJ IV (18:01)
[2017-11-22] MEDS: TAMSULOSIN (SR) 0.4 MG CAP PO (21:16)
[2017-11-22] MEDS: METOCLOPRAMIDE 5 MG TAB PO (21:16)
[2017-11-22] MEDS: ATORVASTATIN 20 MG TAB PO (21:16)
[2017-11-22] MEDS: SENNA TAB PO (21:16)
[2017-11-23] MEDS: SOD CHLORIDE 0.9% 1,000 ML IV ×2 (02:35→16:22)
[2017-11-23] MEDS: PANTOPRAZOLE 40 MG INJ IV ×2 (06:53→17:59)
[2017-11-23] MEDS: ASPIRIN 81 MG TAB PO (08:43)
[2017-11-23] MEDS: AMLODIPINE 2.5 MG TAB PO (08:43)
[2017-11-23] MEDS: METOCLOPRAMIDE 5 MG TAB PO ×3 (08:43→20:51)
[2017-11-23] MEDS: METOPROLOL 25 MG TAB PO ×2 (08:43→20:56)
[2017-11-23] MEDS: FINASTERIDE 5 MG TAB PO (08:44)
[2017-11-23] MEDS: CLOPIDOGREL 75 MG TAB PO (08:44)
[2017-11-23] MEDS: LORAZEPAM 0.5 MG TAB PO (08:44)
[2017-11-23] MEDS: ONDANSETRON 4 MG INJ IV (09:10)
[2017-11-23 16:13] LABS: ADD MAN DIFF? NO
[2017-11-23 16:14] LABS: BASOPHILS % 0.2 % (0.0-2.0); EOSINOPHILS # 0.2 10^3/ul (0.0-0.5); EOSINOPHILS % 4.5 % (0.0-7.0); HEMATOCRIT 29.6 % (42.0-52.0); HEMOGLOBIN 9.9 g/dl (14.0-18.0); LYMPHOCYTES # 1.6 10^3/ul (0.8-2.9); LYMPHOCYTES % 39.2 % (15.0-51.0); MEAN CORPUSCULAR HEMOGLOBIN 24.2 pg (29.0-33.0); MEAN CORPUSCULAR HGB CONC 33.4 g/dl (32.0-37.0); MEAN CORPUSCULAR VOLUME 72.4 fl (82.0-101.0); MEAN PLATELET VOLUME 9.1 fl (7.4-10.4); MONOCYTE # 0.5 10^3/ul (0.3-0.9); MONOCYTES % 11.7 % (0.0-11.0); NEUTROPHIL # 1.8 10^3/ul (1.6-7.5); NEUTROPHILS % 44.2 % (39.0-77.0); PLATELET COUNT 188 10^3/UL (140-415); RED BLOOD COUNT 4.09 10^6/ul (4.70-6.10); RED CELL DISTRIBUTION WIDTH 15.9 % (11.5-14.5)
[2017-11-23 16:14] LABS: WHITE BLOOD COUNT 4.2 10^3/ul (4.8-10.8)
[2017-11-23 16:31] LABS: ANION GAP 12 (8-16); BLOOD UREA NITROGEN 23 mg/dl (7-20); CALCIUM 8.7 mg/dl (8.4-10.2); CARBON DIOXIDE 24 mmol/L (21-31); CHLORIDE 100 mmol/L (97-110); CREATININE 1.34 mg/dl (0.61-1.24); GLUCOSE 119 mg/dl (70-220); SODIUM 132 mmol/L (135-144)
[2017-11-23] MEDS: TAMSULOSIN (SR) 0.4 MG CAP PO (20:51)
[2017-11-23] MEDS: ATORVASTATIN 20 MG TAB PO (20:51)
[2017-11-23] MEDS: SENNA TAB PO (20:56)
[2017-11-24] MEDS: PANTOPRAZOLE 40 MG INJ IV (06:15)
[2017-11-24] MEDS: SOD CHLORIDE 0.9% 1,000 ML IV (06:16)
[2017-11-24] MEDS: AMLODIPINE 2.5 MG TAB PO (08:07)
[2017-11-24] MEDS: ONDANSETRON (ODT) 4 MG TAB ODT (08:07)
[2017-11-24] MEDS: METOPROLOL 25 MG TAB PO (08:09)
[2017-11-24] MEDS: CLOPIDOGREL 75 MG TAB PO (08:09)
[2017-11-24] MEDS: ASPIRIN 81 MG TAB PO (08:09)
[2017-11-24] MEDS: METOCLOPRAMIDE 5 MG TAB PO (08:09)
[2017-11-24] MEDS: FINASTERIDE 5 MG TAB PO (08:09)
== END 2017-11-24 11:30 | disposition home health service (06) | DRG 945 ==
LOC: VRC 15:05
PROC: F08Z1ZZ Dressing Techniques Treatment (ICD-10-PCS; principal; 2017-11-08)
PROC: F08Z0ZZ Bathing/Showering Techniques Treatment (ICD-10-PCS; 2017-11-08)
PROC: F07Z8ZZ Transfer Training Treatment (ICD-10-PCS; 2017-11-08)
PROC: F07Z5ZZ Bed Mobility Treatment (ICD-10-PCS; 2017-11-08)
PROC: F07Z8ZZ Transfer Training Treatment (ICD-10-PCS; 2017-11-08)
DX: Z51.89 Encounter for other specified aftercare (principal); G93.49 Other encephalopathy; I50.23 Acute on chronic systolic (congestive) heart failure; I26.99 Other pulmonary embolism without acute cor pulmonale; I24.9 Acute ischemic heart disease, unspecified; E87.1 Hypo-osmolality and hyponatremia; N17.9 Acute kidney failure, unspecified; N13.30 Unspecified hydronephrosis; N39.0 Urinary tract infection, site not specified; I11.0 Hypertensive heart disease with heart failure; E78.5 Hyperlipidemia, unspecified; K21.9 Gastro-esophageal reflux disease without esophagitis; R94.31 Abnormal electrocardiogram [ECG] [EKG]; I69.398 Other sequelae of cerebral infarction; Z87.440 Personal history of urinary (tract) infections; Z85.72 Personal history of non-Hodgkin lymphomas
CPT/HCPCS: 74018; 80048; 80053; 80076; 81003; 84443; 85025; 87081; 87086; 92507; 92523; 92526; 92610; 97110; 97112; 97116; 97150; 97163; 97167; 97530; 97535; 97542